=== PATIENT | female | born 1965 | race Caucasian/White ===

== ENCOUNTER 2021-11-16 17:46 | Emergency (ER) | payer OTHER ==
[~2021-11-16] VITALS: Ht 154.9 cm; Wt 98.9 kg
[2021-11-16 17:49] VITALS: BP 194/109
[2021-11-16] MEDS ORDERED: HYDROcodone/APAP 5/325 MG 1 TAB TAB PO ONE (17:55)
[2021-11-16] MEDS ORDERED: ACET-8386 PO (19:46)
[2021-11-16 20:22] VITALS: BP 194/109
--- NOTE | 2021-11-16 20:22 | NUR ---
Patient discharged with v/s stable. Written and verbal after care instructions given and explained. Patient verbalized understanding. Ambulatory with steady gait. All questions addressed prior to discharge. Advised to follow up with PMD.
== END 2021-11-16 20:09 | disposition home or self-care (01) ==
LOC: MED 17:46
DX: M79.602 Pain in left arm (principal); M25.561 Pain in right knee; E11.9 Type 2 diabetes mellitus without complications; I10 Essential (primary) hypertension; W19.XXXA Unspecified fall, initial encounter; Y93.89 Activity, other specified; Y92.89 Other specified places as the place of occurrence of the external cause; Y99.8 Other external cause status
CPT/HCPCS: 29105; 73080; 73110; 73562; 99284